=== PATIENT | female | born 1995 | race Caucasian/White ===

== ENCOUNTER 2024-04-03 14:52 | Outpatient (AMB) | payer OTHER, SELFPAY ==
--- NOTE | 2024-04-03 15:02 | A.OFFPC_ITS ---
Vital Signs 04/03/24 15:14 Height 5 ft 5 in Weight 189 lb 2 oz BMI 31.5 BP 120/60 Blood Pressure Location Lt brachial Position Sitting Respiration 16 Pulse 93 Pulse Source Pulse Oximeter Temp 98 F Temp Source Tympanic Pulse Oximetry (%) 98 Oxygen Delivery Method Room Air Intake Visit Reasons: RIBBER Annual PE Req. Intake Note: establish care Is last menstrual period known: Yes ( control irregular periods ) Last menstrual period: 04/03/24 Post menopausal: No Patient : No Allergies No Known Allergies Allergy (Verified 04/03/24 15:05) Medication List - Last Reconciled 04/03/24 by Tristen Martines MD No Known Home Meds Tobacco use date assessed: 04/03/24 Dental Screening Dental Screen Date: 04/03/24 Did you have a dental visit in the last 12 months?: Yes Did you have a dental problem in the last 6 months where you did not have access to dental care?: No Was dental information given to patient?: Patient has dentist HPI RIBBER Annual PE Req. HPI Details New Patient? ?? Prior PCP:? [facility], [facility], [place] Last office visit/CPE:? 2 yrs ago Acute issue(s):? Anxiety, on Duloxetine ?? PMHx:? Anxiety, Eczema/dermatitis SurgHx:? FHx:? Mom: HTN, HLD. Dad: Anxiety. SocHx:? Nonsmoker. EtOH 2 dr a week. No drugs [facility] Social History (Updated 04/03/24 @ 15:09 by Timo Snowden) Housing: Apartment Patient Tobacco Use Status: Never used Tobacco e-Cigarette/Vaping Use: Never Used Substance Use Type: Marijuana service: No Current occupational status: employed Current occupation: mental health theripist Current occupational exposures/hazards: No Cognitive needs: No Hearing needs: Yes (would like hearing test ) Vision needs: No Female Reproductive History Menstrual Date of last menstrual period: 04/03/24 Questionnaire PHQ-9 Over the last 2 weeks, how often have you been bothered by any of the following problems? 1. Little interest or pleasure in doing things: not at all 2. Feeling down, depressed, or hopeless: not at all 3. Trouble falling or staying asleep, or sleeping too much: not at all 4. Feeling tired or having little energy: not at all 5. Poor appetite or overeating: not at all 6. Feeling bad about yourself - or that you are a failure or have let yourself or your family down: not at all 7. Trouble concentrating on things, such as reading the newspaper or watching television: more than half the days 8. Moving or speaking so slowly that other people could have noticed. Or the opposite - being so fidgety or restless that you have been moving around a lot more than usual: not at all 9. Thoughts that you would be better off or of hurting yourself in some way: not at all Total score: 2 Depression Screening Interpretation: Negative Depression Screening Done: Yes 17418 - PHQ-9 Billing: Yes Source: Developed by Drs. Ming Mccain, Kelly Palacio, Colby Collins and colleagues, with an educational ne from [employer]. Thrive Questionnaire Date Thrive assessed: 04/03/24 I am a: Patient What is your living situation today?: I have a steady place to live Within the past 12 months, did the food you bought not last and you didn't have the money to get more?: Never true Within the past 12 months, did you worry whether your food would run out before you got money to buy more?: Never true Do you have trouble paying for medicines?: No Do you have trouble getting transportation to medical appointments?: No Do you have trouble paying your heating and electricity bill?: No Do you have trouble taking care of your child, family member or friend?: No Do you have trouble with day-to-day activities such as bathing, preparing meals, shopping, managing finances, etc.?: No Are you currently unemployed and looking for a job?: No Are you interested in more education?: No Please select the resources that you would like help with: None Currently or been in a relationship where the following occur: No concerns reported THRIVE Score: 0 AUDIT C Alcohol Use Questionnaire (AUDIT-C) 1. How often do you have a drink containing alcohol?: 2-3 times a week 2. How many drinks containing alcohol do you have on a typical day when you are drinking?: 1 or 2 3. How often do you have six or more drinks on one occasion?: Never Total Score: 3 Score Reviewed/Action Taken: Yes SHONA-7 AMB Questionnaire SHONA-7 Date SHONA - 7 assessed: 04/03/24 Feeling nervous, anxious, or on edge: 2 = More than half the days Not being able to stop or control worryin = More than half the days Worrying too much about different things: 2 = More than half the days Trouble relaxin = More than half the days Being so restless that it is hard to sit still: 2 = More than half the days Becoming easily annoyed or irritable: 0 = Not at all Feeling afraid as if something awful might happen: 0 = Not at all Total SHONA-7 score (0-4 normal; 5-9 mild; 10-14 moderate; 15-21 severe): 10 Source: Developed by Drs. Ming Mccain, Kelly Palacio, Colby Collins and colleagues, with an educational ne from [employer]. SHONA-7 Assessment Billing SHONA-7 Assessment Tool: SHONA-7 Assessment 58726 Review of Systems Const Denies chills, Denies fatigue, Denies fever(s), Denies headache(s) and Denies weakness ENT Denies dizziness and Denies headache(s) Card Denies chest pain, Denies lightheadedness, Denies dyspnea and Denies other (Palpitations) Resp Denies cough, Denies dyspnea, Denies wheezing and Denies other ( shortness of breath) Musc Denies numbness and Denies tingling Neuro Denies dizziness, Denies headache(s), Denies numbness, Denies tingling, Denies paresthesias and Denies weakness Psych Reports anxiety and Denies depression Endo Denies fatigue Aller/Immun Denies wheezing Physical exam (Primary Care) Vital Signs: Last Vital Signs Temp 98 F 04/03/24 15:14 Pulse 93 04/03/24 15:14 Resp 16 04/03/24 15:14 BP 120/60 04/03/24 15:14 Pulse Ox 98 04/03/24 15:14 Oxygen Delivery Method Room Air 04/03/24 15:14 BMI result Body Mass Index 31.5 Tobacco/Smoking Status: Tobacco use Status Tobacco use date assessed 04/03/24 04/03/24 15:20 Patient Tobacco Use Status Never used Tobacco 04/03/24 15:20 e-Cigarette/Vaping Use Never Used 04/03/24 15:20 PHQ-9: PHQ-9 Score PHQ-9: Total score 2 04/03/24 15:32 Depression Screening Interpretation: Negative Thrive Assessment: Date of Thrive Assessment Date Thrive assessed 04/03/24 04/03/24 15:20 Currently or been in a relationship where the following occur: No concerns reported Const General: no acute distress and well developed Nutritional Appearance: well nourished Orientation/consciousness: patient oriented x3 HENMT Head: Yes normocephalic and Yes atraumatic Eyes General: appearance normal, both eyes and all related structures Pupils: Equal, round and reactive pupils present EOM: EOMs intact bilaterally Resp Effort & Inspection: normal respiratory effort Auscultation: clear to auscultation bilaterally Cardio Rate: regular rate Rhythm: regular rhythm Heart sounds: S1 normal heart sound present, S2 normal heart sound present, no gallops, no murmurs and no rubs Neuro General: patient oriented x3 and gait normal Cranial nerves: Yes Equal, round and reactive pupils present Psych Affect: normal affect Assessment and Plan Assessment & Plan (1) Anxiety: Code(s): F41.9 - Anxiety disorder, unspecified Plan: Currently?on?duloxetine?which?is?significantly?improving?her?symptoms Will?continue?this?for?her?at?current?dose Patient?also?notes?some?hot?flashes?and?this?can?sometimes?be?due?to?duloxetine. ??Checking?labs?however. 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 Panel Fast Today Z00.00 - Encounter for general adult medical examination without abnormal findings Complete Blood Count Auto Diff Today Z00.00 - Encounter for general adult medical examination without abnormal findings Microalbumin, Random (w Creat) Today I10 - Essential (primary) hypertension UA and rflx microscopic Today Z00.00 - Encounter for general adult medical examination without abnormal findings Follicle Stimulating Hormone Today R23.2 - [place] Lutenizing Hormone Today R23.2 - [place] Lipid Panel Today Z00.00 - Encounter for general adult medical examination without abnormal findings TSH reflex Free T4 Today Z00.00 - Encounter for general adult medical examination without abnormal findings Referrals Sleep Medicine Referral G47.50 - Parasomnia, unspecified, R53.83 - Other fatigue 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
[2024-04-03 15:14] VITALS: BP 120/60; PULSE 93; RESP 16; TEMP 36.6; O2SAT 98; BMI 31.5
== END 2024-04-03 16:07 | disposition home or self-care (01) ==
PROVIDERS: PCP Family Medicine; Visit Provider Family Medicine
DX: F41.9 Anxiety disorder, unspecified (principal); L30.9 Dermatitis, unspecified; R53.83 Other fatigue; Z12.4 Encounter for screening for malignant neoplasm of cervix; R23.2 Flushing; Z00.00 Encounter for general adult medical examination without abnormal findings
CPT/HCPCS: 96127; 99203